=== PATIENT | female | born 1980 | race African-American/Black ===

== ENCOUNTER 2019-06-11 20:17 | Inpatient (IN) | payer OTHER ==
[~2019-06-11] VITALS: Ht 172.7 cm; Wt 88.5 kg
[2019-06-11 20:17] VITALS: BP 123/85
[2019-06-11 20:50] LABS: BASOPHILS % (AUTO) 0.6 % (0.0-2.0); EOSINOPHILS % (AUTO) 0.8 % (0.0-4.0); HEMOGLOBIN 12.6 g/dL (12.0-16.0); LYMPHOCYTES # (AUTO) 1.2 K/uL (2.5-16.5); LYMPHOCYTES % (AUTO) 30.7 % (20.5-51.1); MEAN CORPUSCULAR HEMOGLOBIN 32 pg (27-31); MEAN CORPUSCULAR HGB CONC 33 g/dL (33-37); MONOCYTES # (AUTO) 0.2 K/uL (0.8-1.0); MONOCYTES % (AUTO) 5.6 % (1.7-9.3); NEUTROPHILS # (AUTO) 2.4 K/uL (1.8-7.7); NEUTROPHILS % (AUTO) 62.3 % (42.2-75.2); PLATELET COUNT (AUTO) 247 K/uL (140-450); RED BLOOD CELL COUNT(AUTO) 3.91 MIL/uL (4.20-5.40); RED CELL DISTRIBUTION WIDTH 13.6 % (11.6-13.7); WHITE BLOOD COUNT (AUTO) 3.9 K/uL (4.8-10.8)
[2019-06-11 20:55] LABS: BARBITURATE, URINE NEG. ng/ml (NEG <=200); BENZODIAZEPINE, URINE NEG. ng/mL (NEG <=200); CANNABINOID, URINE NEG. ng/mL (NEG <=50); COCAINE, URINE NEG. ng/mL (NEG <=300); OPIATE, URINE NEG. ng/mL (NEG <=2000); PHENCYCLIDINE SCREEN,URINE NEG. ng/mL (NEG <=25)
--- NOTE | 2019-06-11 21:03 | NUR ---
39 Y/O FEMALE BIB [facility], ALS. PRESENTS TO ED WITH CHIEF COMPLAINT OF SUICIDE ATTEMPT. MANAGER FINANCIAL SERVICES STATES PT ATTEMPTED TO CUT SELF, SUPERFICAL CUT ON LEFT ARM 3CM, NO BLEEDING. PT THEN PROCEEDED TO OD ON UNKNOWN AMOUNT OF PRESCRIPTION PILLS PER HOLD. BOYFRIEND CALLED EMS, ALS UNIT ALONG WITH [facility] ARRIVED ON SCENE. OFFICER PLACED PT ON 5150 HOLD. MANAGER FINANCIAL SERVICES STATES UPON ARRIVAL, PT WAS MORE RESPONSIVE BUT STARTED TO DETERIORATE ENROUTE. PT HAS LABORED BREATHING, PLACED ON NC BY MANAGER FINANCIAL SERVICES. ARRIVED AT HOSPITAL, EMT INSERTED NPA ON PT, PLACED ON MASK 6L SPO2 AT 100%. LUNG SOUNDS BILAT CLEAR. PLACED HEAD OF BED ON FOWLERS. WILL CONTINUE TO MONITOR 1:1 WITH ED STAFF AT BEDSIDE.
[2019-06-11 21:21] LABS: ALBUMIN 3.3 g/dL (3.4-5.0); ASPARTATE AMINOTRANSFERASE 24 U/L (15-37); CARBON DIOXIDE 23.6 mmol/L (21-32); CHLORIDE 102 mmol/L (98-107); CREATININE 0.7 mg/dL (0.6-1.3); GFR ARICAN-AMERICAN 119 mL/min (>90); GLUCOSE 115 mg/dL (74-106); SODIUM SERUM 138 mmol/L (136-145); TOTAL BILIRUBIN 0.3 mg/dL (0.0-1.0); UREA NITROGEN, BLOOD 4 mg/dL (7-18)
[2019-06-11 21:23] LABS: POTASSIUM 2.6 mmol/L (3.5-5.1); SALICYLATE < 2.8 mg/dL (2.8-20.0)
[2019-06-11 21:24] LABS: ACETAMINOPHEN < 0.5 ug/ml (10-30)
[2019-06-11] MEDS ORDERED: [UNRECOGNIZED DRUG - CODE] PO (21:36)
[2019-06-11] MEDS ORDERED: HYDR-5122 PO (21:36)
[2019-06-11] MEDS ORDERED: ORE25 PO (21:36)
[2019-06-11] MEDS ORDERED: BACL10TA4 PO (21:36)
[2019-06-11] MEDS ORDERED: TRAZ-343 PO (21:36)
[2019-06-11] MEDS ORDERED: TOP100 PO (21:36)
[2019-06-11] MEDS ORDERED: PAX20 PO (21:36)
--- NOTE | 2019-06-11 21:50 | NUR ---
suction set up in room
--- NOTE | 2019-06-11 21:52 | NUR ---
PT WENT TO CT
[2019-06-11] MEDS ORDERED: POTASSIUM CHL 20 MEQ/NACL 0.9% 1,000 ML IV ONE (21:55)
--- NOTE | 2019-06-11 22:48 | NUR ---
PT'S FIANCE AT BEDSIDE. FIANCE STATES HE DOES NOT KNOW ANY HX REGARDING PT, STATES PT SEES A PSYCHIATRIST BUT UNABLE TO VERIFY REASON.
--- NOTE | 2019-06-11 22:52 | NUR ---
PT'S FIANCE DENIES ANY PREVIOUS HX OF SUICIDE ATTEMPTS OR IDEATIONS BY PT.
[2019-06-12] MEDS ORDERED: ONDANSETRON 4 MG/2 ML VIAL IVP PRN (01:05)
[2019-06-12] MEDS ORDERED: ACETAMINOPHEN 325 MG TAB PO PRN (01:05)
--- NOTE | 2019-06-12 01:55 | NUR ---
PT ADMITTED TO [facility]ST RM 110B. PT TRANSFERRED VIA [facility] WITH [facility] EMT, STABLE CONDITION. REPORT GIVEN TO ISAC BUTT. POTASSIUM Chl STILL INFUSING, ENDORSED TO ISAC BUTT. PT CARE TRANSFERRED TO RECEIVING RN.
[2019-06-12 02:00] VITALS: BP 132/89
[2019-06-12] MEDS ORDERED: KCL 20 MEQ/WATER INJ PREMIX 200 ML IV SCH (02:00)
--- NOTE | 2019-06-12 02:00 | NUR ---
PT BROUGHT UP BY SERAFIN, HOB UP 45%. PT IS AOX1, SHE IS SEDATED WITH N S/S OF PAIN OR DISTRESS NOTED. PT SKIN INTACT AND IV SITE IS RIGHT WRIST 20GUAGE. 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 V/S FOLLOWS T 97.8 P 78 B/P IS 132/89 RESPIRATIONS ARE 6 PER MINUTE DEEP RESPIRATIONS WITH A SHORT PERIODS OF APNEA. PT HAS POTASSIUM WITH 40MEQ RUNNING AT 100MLS/HR. PT WAS BIBA TO ER FOR SI AND ETOH INTOXICATION. 1:1 SITTER AT BEDSIDE.
--- NOTE | 2019-06-12 03:00 | NUR ---
PT WAS TURNED, CHANGED AND REPOSITIONED. IV SITE ON RIGHT HAND INTACT AND FLUSHED PATENT. IV RUNNING POTASSIUM ORDERED.
[2019-06-12 04:00] VITALS: BP 143/99
--- NOTE | 2019-06-12 04:00 | NUR ---
PT WAS SUCTIONED BY MOUTH AND SHE OPENED HER EYES SPONTANEOUSLY THEN WENT BACK TO SLEEP. V/S FOLLOWS T 97.6 P 64 R 6 B/P 143/99 02 98% WITH 2 LITERS VIA N/C. HR IS 65 ON TELEMONITORING WITH SR. 1:1 SITTER AT BEDSIDE. AND ALL FALLS PRECAUTIONS IN PLACE.
--- NOTE | 2019-06-12 07:32 | NUR ---
Received report from tobacco shaker nurse. Pt is in bed. no signs of distress. Sitter by patient. [id number]
[2019-06-12 08:00] VITALS: BP 150/98
--- NOTE | 2019-06-12 08:23 | NUR ---
PATIENT HAS BEEN SCREENED AND CATEGORIZED LOW NUTRITION RISK. PATIENT WILL BE SEEN WITHIN 7 DAYS OF ADMISSION. 06/18/[address]
[2019-06-12] MEDS ORDERED: MULTIVITAMIN-12 10 ML, THIAMINE 100 MG, MAGNESIUM SULFATE 50% 2,000 MG, FOLIC ACID 1 MG... IV SCH ×5 (09:30)
--- NOTE | 2019-06-12 10:30 | NUR ---
Pt resting in bed. Pt has low respiration rate with apneic period in between. Fiance by bedside. Sitter by bedside. Call light within reach.
--- NOTE | 2019-06-12 10:30 | NUR ---
Pt was started on banana bag. Mag at 1.5. IV infusing at 100ml/hr.
[2019-06-12 12:00] VITALS: BP 150/97
--- NOTE | 2019-06-12 13:04 | NUR ---
Pt resting in bed. No signs of distress except for low respiration rate and apneic episodes in between. sitter by bed side. Call light in reach. [id number]
--- NOTE | 2019-06-12 14:32 | NUR ---
Pt resting in bed. No signs of distress except for low respiration rate and apneic episodes in between. Sitter by bed side. Call light in reach. [id number]
--- NOTE | 2019-06-12 15:17 | NUR ---
MACRINA attempted to conduct assessment with patient but patient was asleep. MACRINA contacted significant other/emergency contact Erick Andrade [phone] and left voicemail. MACRINA will follow up. Addendum: 06/13/19 at 1343 by Adalid Moreno MACRINA attempted to conduct assessment with patient but patient was alert/oriented x1. MACRINA attempted to contact significant other/emergency contact Erick Andrade again [phone]. Erick Andrade did not answer phone call. MACRINA left voicemail. MACRINA/YAMILETH will follow up.
[2019-06-12 16:00] VITALS: BP 155/104
[2019-06-12] MEDS: LORazepam 2 MG/ML VIAL IVP PRN (17:14)
--- NOTE | 2019-06-12 17:19 | NUR ---
Pt was agitated and sweating. Gave lorazepam 1mg IVP. Sitter by bedside.
--- NOTE | 2019-06-12 18:38 | NUR ---
Pt is resting in bed. No signs of agitation. Sitter by bedside.[id number]
--- NOTE | 2019-06-12 19:18 | NUR ---
Shift report endorsed to mine shifter nurse. Pt is in bed. Sitter by bedside. [id number]
--- NOTE | 2019-06-12 19:19 | NUR ---
RECD. RESTING IN BED SLEEPING. OPENS EYES WHEN QUESTIONS ASKED BUT DOES NOT RESPOND AND WENT BACK TO SLEEP AGAIN. BANANA BAG INFUSING AT 100 ML/HR, RIGHT HAND G 20. NOTED GREEN TRUMPET IN THE RIGHT NARES, PATENT AND INTACT. NO APPEARANCE OF PAIN NOTED 0/10.
[2019-06-12 20:00] VITALS: BP 139/93
--- NOTE | 2019-06-12 20:00 | NUR ---
NOSE TRUMPET WENT OUT OF NOSE, PUT BACK BY RT NICHELLE.
--- NOTE | 2019-06-12 20:00 | NUR ---
Patient's Plan of Care was discussed and reviewed with MANAGER CUSTOMS: Mary Gomez
--- NOTE | 2019-06-12 20:45 | NUR ---
OF PATIENT CAME AND VISIT, PATIENT JUST OPEN EYES AND WENT BACK TO SLEEP. VS STABLE.
--- NOTE | 2019-06-12 21:00 | NUR ---
CLEANSED FACE WITH WET FACE TOWEL. STILL DID NOT SPEAK JUST OCCASIONALLY OPENS EYES AND WENT BACK TO SLEEP.
[2019-06-13] VITALS: BP 139/69
--- NOTE | 2019-06-13 | NUR ---
TRUMPET INSIDE RIGHT NARES CAME OUT AGAIN, RT TAKE IT OFF.
--- NOTE | 2019-06-13 01:00 | NUR ---
ACCIDENTALLY PULLED OUT HER IV. SITS UP AND TOOK OFF HER GOWN. STILL UNABLE TO SPEAK.
--- NOTE | 2019-06-13 02:30 | NUR ---
NEW IV LINE INSERTED BY CHARGE NURSE JUANJOSE AT THE RIGHT FOREARM G22.
--- NOTE | 2019-06-13 03:00 | NUR ---
SITTING ON BED, TOOK OFF GOWN, NOTED SOME SHAKINESS AND RESTLESSNESS, STILL UNABLE TO SPEAK, EYES OPEN, JUST LOOKS BUT UNABLE TO EXPRESS SELF.REORIENTED TO HOSPITAL SETTING. NEEDS REINFORCEMENT.
[2019-06-13] MEDS: LORazepam 2 MG/ML VIAL IVP PRN (03:22)
--- NOTE | 2019-06-13 03:22 | NUR ---
MEDICATED WITH ATIVAN 1 MG. IVP BY DAQUAN BUCIO.
--- NOTE | 2019-06-13 04:00 | NUR ---
NO AGITATION. OCCASIONALLY WAKES UP THEN BACK TO SLEEP. UNABLE TO SPEAK BUT SEEMS TO MAKE SOUNDS. TOOK OFF GOWN.
[2019-06-13 04:20] VITALS: BP 149/95
--- NOTE | 2019-06-13 06:42 | NUR ---
AWAKE, ABLE TO SPEAK SOME WORDS. WITH RESTLESSNESS, TRYING TO GET OUT OF BED. REORIENTED TO HOSPITAL SETTING. ON 1:1 SITTER. CONDITION REMAIN STABLE. WILL ENDORSE TO AM NURSE FOR CONTINUITY OF CARE.
[2019-06-13 07:54] LABS: ANION GAP 13.2 (8-16); CARBON DIOXIDE 27.2 mmol/L (21-32); CREATININE 0.7 mg/dL (0.6-1.3); POTASSIUM 3.4 mmol/L (3.5-5.1)
--- NOTE | 2019-06-13 08:00 | NUR ---
RECEIVED REPORT FROM JARED VASQUEZ. PATIENT ALERT AWAKE ORIENTED X2 TO NAME AND PLACE, NOT IN ANY DISTRESS NOTED. ABLE TO COMMUNICATE AND OBEYS COMMAND. VITALS TAKEN. INITIAL ASSESSMENT INITIATED. ON TELE SHOWS SR/ST. WILL CONTINUE TO MONITOR.
[2019-06-13 08:33] VITALS: BP 138/62
[2019-06-13] MEDS ORDERED: MULTIVITAMIN-12 10 ML, THIAMINE 100 MG, MAGNESIUM SULFATE 50% 2,000 MG, FOLIC ACID 1 MG... IV SCH ×5 (09:00)
--- NOTE | 2019-06-13 10:30 | NUR ---
SEEN BY PT, BANANA BAG STARTED AND INFUSING WELL. PUT NEW IV LINE ON HER RIGHT WRIST. IVF INFUSING WELL.
[2019-06-13 12:00] VITALS: BP 135/87
--- NOTE | 2019-06-13 12:00 | NUR ---
SEEN BY DR. KAT AND WITH ORDER TO ADVANCE THE DIET TO REGULAR.
--- NOTE | 2019-06-13 17:02 | NUR ---
ASSUMED CARE OF PT. PT'S IS AT BEDSIDE, DEMANDING THAT PT GET A SHOWER RIGHT THIS MINUTE. I TOLD HIM THAT THE [facility] ARE AWARE AND WILL GIVE HER A BED BATH SOON THEY ARE AVAILABLE. PT IS AWAKE BUT CLEARLY DISORIENTED. NO S/S OF ACUTE DISTRESS NOTED. PT ON ROOM AIR, SKIN INTACT. BANANA BAG INFUSING 100 ML/HR.
--- NOTE | 2019-06-13 17:15 | NUR ---
PT TAKING A SHOWER, ASSISTED BY YOVANI
--- NOTE | 2019-06-13 19:25 | NUR ---
PT ENDORSED TO INTRANET SPECIALIST NURSE IN STABLE CONDITION.
--- NOTE | 2019-06-13 19:25 | NUR ---
RECEIVED BEDSIDE REPORT FROM AM SHIFT DAQUAN HERNANDEZ, FOR PT'S CONTINUITY OF CARE. PT IS LYING DOWN ASLEEP, WITH NO SIGNS OF DISTRESS. PT IS ON ROOM AIR, HAS RIGHT HAND 20G WITH BANAN BAG INFUSING, ON 5150/SITTER. CURTAIN IN ROOM BROUGHT UP TO HSE SPECIALIST JOWIE'S ATTN, HSE SPECIALIST AWARE AND STATES OK TO HAVE CURTAIN FOR PRIVACY, AND CURTAIN IS THE PLASTIC EASY PULL AWAY. WILL MONITOR PT THROUGHOUT SHIFT.
--- NOTE | 2019-06-13 22:18 | NUR ---
PT C/O MILD HEADACHE. ADMINISTERED PRN PO PAIN MEDICATION ORDERED. PT TOLERATED IT WELL. PT TEACHING GIVEN REGARDING MEDICATION ON EMAR, IV FLUID INFUSING, AND PLAN OF CARE. PT AND SIGNIFICANT OTHER VERBALIZED UNDERSTANDING. WILL REASSESS PT FOR MEDICATION EFFECTIVENESS.
[2019-06-14] VITALS: BP 131/91
--- NOTE | 2019-06-14 | NUR ---
VS CHECKED AND CHARTED. PT LYING DOWN RESTING, DENIES PAIN OR DISTRESS AT THIS TIME. PT CONTINUES TO BE ON SITTER/5150. NO BEHAVIORAL DISTRESS NOTED AT THIS TIME. WILL CONTINUE TO MONITOR PT.
--- NOTE | 2019-06-14 02:15 | NUR ---
MADE ROUNDS. PT UP USING THE RESTROOM ASSISTED BY THE ELECTRONIC LAB TECHNICIAN. PT TOLERATED ACTIVITY WELL. WILL CONTINUE TO MONITOR PT.
--- NOTE | 2019-06-14 04:30 | NUR ---
MADE ROUNDS. PT LYING DOWN ASLEEP WITH NO SIGNS OF DISTRESS. PT STATES SHE DOES NOT REMEMBER IF SHE ALREADY HAD THE FLU VACCINE. WILL REASSESS WHEN PT IS MORE AWAKE.
--- NOTE | 2019-06-14 06:09 | NUR ---
PT LYING DOWN ASLEEP WITH NO SIGNS OF DISTRESS. WILL ENDORSE TO AM SHIFT RN FOR PT'S CONTINUITY OF CARE.
[2019-06-14 07:58] VITALS: BP 141/99
--- NOTE | 2019-06-14 08:00 | NUR ---
RECEIVED REPORT FROM CERTIFIED PROFESSIONAL ERGONOMIST NURSE. PATIENT ALERT AWAKE ORIENTED X4, NOT IN ANY DISTRESS NOTED.INITIAL ASSESSMENT INITIATED. PATIENT VERBALIZED THAT SHE FEELS BETTER TODAY. NEEDS ATTEDNDED, WILL CONTINUE TO MONITOR.
--- NOTE | 2019-06-14 08:32 | NUR ---
PATIENT SIGNIFICANT OTHER AT BEDSIDE. DENIES ANY PAIN AT THIS TIME. WILL CONTINUE TO MONITOR.
[2019-06-14] MEDS ORDERED: HYDROcodone/APAP 5/325 MG 1 TAB TAB PO PRN (08:35)
[2019-06-14] MEDS: BACLOFEN 10 MG TAB PO SCH ×4 (09:00→16:13)
[2019-06-14] MEDS ORDERED: NABUMETONE PO SCH (09:00)
[2019-06-14] MEDS: PARoxetine 20 MG TAB PO SCH ×2 (09:14→22:25)
[2019-06-14] MEDS: HYDROCHLOROTHIAZIDE 25 MG TAB PO SCH (09:14)
[2019-06-14] MEDS: TOPIRAMATE 100 MG TAB PO SCH (09:15)
--- NOTE | 2019-06-14 10:30 | NUR ---
Discharge Plan: MACRINA sent clinical packet and 5150 to [facility] [phone]. MACRINA/YAMILETH will follow up as needed. Addendum: 06/14/19 at 1551 by Adalid Moreno MACRINA called [facility] Call Center [phone] and spoke to Art at 1500 to see if there were any updates. Roverto stated that packet was not received. MACRINA requested to speak to county supervisor and spoke to Nilda who requested fax at [phone]. Nilda stated that she would contact MACRINA once it is received. MACRINA faxed clinicals and is awaiting Nilda's call. Addendum: 06/14/19 at 1600 by Adalid Moreno MACRINA contacted Nilda at [facility] [phone]. Nilda confirmed that 5150 and clinical packet was received for patient. Nilda stated she will begin looking for facilities for patient. SW/CM will follow up as needed. Addendum: 06/15/19 at 0916 by Adalid Moreno Patient is 39 year old female admitted for ETOH intoxication and SI. Patient was given a 5150 on 06/11/2019 which has . Per charge nurse Humphreys, patient is awaiting psych consult. SW/CM will follow up as needed. Addendum: 06/15/19 at 1608 by Adalid Moreno SW contacted Charge Nurse Humphreys to discuss DC plan regarding patient. SW was informed that patient will be discharging home. SW/CM will follow up as needed.
--- NOTE | 2019-06-14 10:30 | NUR ---
Received report from nurse Humphreys. Pt resting in bed, awake, interacting appropriately with roommate's visitor. No signs of distress. Sitter at bedside for continuous monitoring.
--- NOTE | 2019-06-14 11:30 | NUR ---
Per house mover, will walk with pt & pt's boyfriend to cafeteria. Pt able to amb off unit with steady gait, no signs of distress, no c/o discomfort/pain. supervisor bakery sanitation with pt.
--- NOTE | 2019-06-14 11:50 | NUR ---
Pt came back to room, accompanied by pt's boyfriend & research greenhouse supervisor. Went back to bed, no signs of distress. Sitter at bedside.
--- NOTE | 2019-06-14 14:04 | NUR ---
Received report from DAQUAN Franz. Patient lying in bed with fiance by bedside. Patient alert and oriented, no sign of distress. Able to verbalize needs.
--- NOTE | 2019-06-14 14:04 | NUR ---
Report given to nurse Hopkins. Pt resting in bed, no signs of distress.
[2019-06-14 16:00] VITALS: BP 119/77
--- NOTE | 2019-06-14 16:32 | NUR ---
FORMER[facility] aware of patient and will assist with placement. Referral has been faxed to the following facilities for review: [facility], [facility], [facility], [facility].
--- NOTE | 2019-06-14 19:25 | NUR ---
RECEIVED BEDSIDE REPORT FROM AM SHIFT FOR PT'S CONTINUITY OF CARE. PT IS LYING DOWN AWAKE, ALERT O, X 4. WITH NO SIGNS OF DISTRESS. PT IS ON ROOM AIR, HAS RIGHT HAND 20G SALINE LOCK ON 5150/SITTER. WILL MONITOR PT THROUGHOUT SHIFT.
[2019-06-14] MEDS ORDERED: traZODone 50 MG TAB PO PRN (21:00)
--- NOTE | 2019-06-14 21:58 | NUR ---
PT CAME IN AND DROPPED BY, CONTACTED MOTHER USING 'S PHONE OR PATIENT'S BUT BROUGHT FOR HER TO CONTACT MOTHER
--- NOTE | 2019-06-14 22:27 | NUR ---
PT UNABLE TO SLEEP, REQUESTED FOR THE TRAZADONE
--- NOTE | 2019-06-14 23:15 | NUR ---
PT DIANA READY FOR SLEEPP0 REQUESTING FOR A SHOWER TOMORROW. C/O OF PERINEAL/ BODY ITCHINESS
[2019-06-15] VITALS: BP 118/73
--- NOTE | 2019-06-15 02:26 | NUR ---
CHECKED ON PT SLEEPING NO COMPLAINTS AT THIS TIME
--- NOTE | 2019-06-15 03:22 | NUR ---
Follow up calls were made to contracted psych facilities through out shift, still no bed vacancies at this time. [facility] Fuentes, spokew tsering Spear. [facility], spoke with Kim. [facility], spoke with Kaylee. [facility], spoke with Apoorva. [facility], spoke with Julia. [facility], spoke with Jacquie. [facility], spoke with Rosenda.
[2019-06-15 07:55] VITALS: BP 112/75
--- NOTE | 2019-06-15 08:04 | NUR ---
RECEIVED REPORT FROM DIRECTOR PATIENT. PATIENT ALERT AWAKE ORIENTED X4, NOT IN ANY DISTRESS NOTED, DENIES PAIN AT THIS TIME. VITALS TAKEN, STABLE. INITIAL ASSESSMENT INITIATED. PATIENT VERBALIZED THAT SHE FEELS BETTER, NO SUICIDAL THOUGHTS. WITH SITTER. NEEDS ATTENDED. WILL CONTINUE TO MONITOR.
[2019-06-15] MEDS: BACLOFEN 10 MG TAB PO SCH ×2 (08:19→13:00)
[2019-06-15] MEDS: TOPIRAMATE 100 MG TAB PO SCH (08:19)
[2019-06-15] MEDS: HYDROCHLOROTHIAZIDE 25 MG TAB PO SCH (08:19)
[2019-06-15] MEDS: PARoxetine 20 MG TAB PO SCH (08:20)
--- NOTE | 2019-06-15 12:00 | NUR ---
SEEN BY CHANGE WITH DC ORDER.
--- NOTE | 2019-06-15 12:32 | NUR ---
[facility] aware that 5150 has and physician has ordered discharge home. If further assistance is needed, please contact the Call Center at [phone]
--- NOTE | 2019-06-15 13:02 | NUR ---
06/15/19 RD INITIAL ASSESSMENT COMPLETED PLEASE REFER TO NUTRITION ASSESSMENT UNDER CARE ACTIVITY FOR ESTIMATED NUTRITIONAL NEEDS. 1. CONTINUE REGULAR DIET TOLERATED 2. RD TO FOLLOW-UP 5-7 DAYS, LOW RISK CATHI FLORES RD
--- NOTE | 2019-06-15 15:08 | NUR ---
SPOKE TO DR. LICONA AND HE SAID PATIENT CAN BE DC WHEN MEDICALLY CLEARED.
--- NOTE | 2019-06-15 16:00 | NUR ---
PATIENT FIANCE IS VERY UPSET REGARDING PATIENT BELONGINGS. SECURITY TANK AND CROSSING SUPERVISOR SPOKE TO THE FIANCE AND THE PATIENT THAT THEY WILL FOLLOW UP TMW.
--- NOTE | 2019-06-15 16:40 | NUR ---
PATIENT D/C HOME ACCOMPANIED BY JENNIFER, PAPERS SIGNED. DC TO HOME WITH DC INSTRUCTION GIVEN AND VERBALIZED UNDERSTANDING. IN STABLE CONDITION.
== END 2019-06-15 16:40 | disposition home or self-care (01) | DRG 812 ==
LOC: MED 20:17 → MTU 06-12 00:46
PROVIDERS: ADMIT Internal Medicine Pulmonary Disease; ATTEND Internal Medicine Pulmonary Disease
DX: T50.902A Poisoning by unspecified drugs, medicaments and biological substances, intentional self-harm, initial encounter (principal); F23 Brief psychotic disorder; E87.6 Hypokalemia; F10.129 Alcohol abuse with intoxication, unspecified; F32.9 Major depressive disorder, single episode, unspecified; T50.2X5A Adverse effect of carbonic-anhydrase inhibitors, benzothiadiazides and other diuretics, initial encounter; F15.10 Other stimulant abuse, uncomplicated; I10 Essential (primary) hypertension; G89.29 Other chronic pain; F17.200 Nicotine dependence, unspecified, uncomplicated; F41.9 Anxiety disorder, unspecified
CPT/HCPCS: 36415; 70450; 80048; 80053; 80305; 81025; 83735; 84484; 85025; 87081; 93005; 97116; 97161-GP; 97530; 99285; A9153; G0480; G0482; J2060; J3411; J3475; J3480; J3490; J7030

== ENCOUNTER 2020-01-22 15:20 | Emergency (ER) | payer OTHER ==
[~2020-01-22] VITALS: Ht 165.1 cm; Wt 81.6 kg
[~2020-01-22 15:20] MED LIST: BACL10TA4 PO; ORE25 PO; PAX20 PO; TOP100 PO; TRAZ-343 PO; [UNRECOGNIZED DRUG - CODE] PO
[2020-01-22 15:33] VITALS: BP 109/60
--- NOTE | 2020-01-22 15:44 | NUR ---
Patient ambulated to bed 6. RN evaluating patient at bedside.
--- NOTE | 2020-01-22 15:51 | NUR ---
39 yo female c/o auditory hallucinations x month---started working 2nd week and voices do not let up, pt concerned it will affect her job. pt states that she drank cognac today and took meth last night denies suicidal/homicidal ideation states missed her recent last therapist appt hx--htn, mood disorder rx---diet controlled, paxil
--- NOTE | 2020-01-22 16:17 | NUR ---
Dr. Rosa is evaluating the patient at bedside.
[2020-01-22] MEDS ORDERED: OLANZapine 5 MG ODT SL ONE (16:45)
[2020-01-22 18:13] LABS: BARBITURATE, URINE NEGATIVE ng/ml (NEG <=200); BENZODIAZEPINE, URINE NEGATIVE ng/mL (NEG <=200); CANNABINOID, URINE NEGATIVE ng/mL (NEG <=50); COCAINE, URINE NEGATIVE ng/mL (NEG <=300); PHENCYCLIDINE SCREEN,URINE NEGATIVE ng/mL (NEG <=25)
[2020-01-22 18:14] LABS: OPIATE, URINE NEGATIVE ng/mL (NEG <=2000)
[2020-01-22 18:26] VITALS: BP 109/60
--- NOTE | 2020-01-22 18:26 | NUR ---
Patient discharged with v/s stable. Written and verbal after care instructions given and explained. Patient verbalized understanding. Ambulatory with steady gait. All questions addressed prior to discharge. Advised to follow up with PMD.
== END 2020-01-22 18:26 | disposition home or self-care (01) ==
LOC: MED 15:20
DX: F15.10 Other stimulant abuse, uncomplicated (principal); R44.0 Auditory hallucinations; E11.9 Type 2 diabetes mellitus without complications; I10 Essential (primary) hypertension; Z79.899 Other long term (current) drug therapy
CPT/HCPCS: 80305; 81002; 81025; 99283